=== PATIENT | female | born 1980 | race Caucasian/White ===

== ENCOUNTER 2017-02-16 15:30 | Emergency (ER) | payer MEDICAID ==
[~2017-02-16] VITALS: Ht 157.5 cm; Wt 78.0 kg
[~2017-02-16 15:30] MED LIST: AMO500 PO; BACTDS PO; ERYT1OIN6 RIGHT EYE; IBUP-1542 PO; IBUP-727 PO
[2017-02-16 15:32] VITALS: Ht 157.5 cm; Wt 78.0 kg
[2017-02-16] MEDS ORDERED: ONDANSETRON 4 MG INJ IV STA (16:02)
[2017-02-16] MEDS ORDERED: HYDROmorphONE 1 MG/ML SYG IV STA (16:02)
[2017-02-16] MEDS ORDERED: SOD CHLORIDE 0.9% 1,000 ML IV STA (16:02)
--- NOTE | 2017-02-16 16:08 | ERA ---
ER Documentation Chief Complaint Date/Time DATE: 02/16/17 TIME: 16:07 Chief Complaint AP X 3 DAYS HPI This is a 37-year-old female who complains of bilateral lower quadrant/pelvic pain. She has no vaginal discharge no dysuria no hematuria. Patient says the pain is very sharp and worse with walking and movement. No vomiting no diarrhea no. The patient says she is going to start her period any day now says she has not had symptoms like this before. No radiation of pain no worsening with food or back pain ROS All systems reviewed and are negative except as per history of present illness. Medications Home Meds Active Scripts Ibuprofen* (Motrin*) 600 Mg Tab, 600 MG PO Q6H Y for PAIN AND OR ELEVATED TEMP, #30 TAB Prov:LOUANN MIGUEL [employer] 02/25/16 Amoxicillin* (Amoxicillin*) 500 Mg Cap, 500 MG PO TID for 10 Days, CAP Prov:LOUANN MIGUEL NP 02/25/16 Erythromycin (Erythromycin Opth) 3.5 Gm Oint..gm., 1 APPLIC RIGHT EYE TID for 7 Days, TUB Prov:DELMAR HERNANDEZ 03/11/15 Sulfamethoxazole-Trimethoprim* (Bactrim* DS) 800-160 Mg Tab, 1 TAB PO BID for 5 Days, TAB Prov:NICK FAJARDO PA-C 02/04/15 Reported Medications Ibuprofen (Motrin) 600 Mg Tablet, PO PRN 05/24/13 Allergies Allergies: Coded Allergies: No Known Allergy (Unverified , 05/24/13) PMhx/Soc History of Surgery: Yes (C/S X 2, RT EAR surgery) Anesthesia Reaction: No Hx Neurological Disorder: No Hx Respiratory Disorders: No Hx Cardiac Disorders: No Hx Psychiatric Problems: No Hx Miscellaneous Medical Probl: No (ovarian cysts) Hx Alcohol Use: No Hx Substance Use: No Hx Tobacco Use: No Smoking Status: Never smoker FmHx Family History: No coronary disease Physical Exam Vitals Vital Signs Date Time Temp Pulse Resp B/P Pulse Ox O2 Delivery O2 Flow Rate FiO2 02/16/17 15:32 99.0 69 18 127/70 99 Physical Exam Const: Well-developed, well-nourished Head: Atraumatic, normocephalic Eyes: Normal Conjunctiva, PERRLA, EOMI, normal sclera, no nystagmus ENT: Normal External Ears, Nose and Mouth, moist mucus membranes. Neck: Full range of motion. No meningismus, no lymphadenopathy. Resp: Clear to auscultation bilaterally, no wheezing, rhonchi, rales Cardio: Regular rate and rhythm, no murmurs, S1 S2 present Abd: Soft, diffuse moderate tenderness to the bilateral lower quadrant and bilateral pelvic regions, non distended. Normal bowel sounds, no rebound mild guarding, no pulsitile abdominal masses or bruits Skin: No petechiae or rashes, no ecchymosis , no maculopapular rash Back: No midline or flank tenderness Ext: No cyanosis, or edema, FROM x 4, normal inspection, neurovascularly intact x 4 Neur: Awake and alert, STR 5/5 x 4, sensation intact x 4, no focal findings, cerebellum intact Psych: Normal Mood and Affect Result Diagram: 02/16/17 1625 02/16/17 1625 Results 24 hrs Laboratory Tests Test 02/16/17 16:25 White Blood Count 10.610^3/ul Red Blood Count 4.6810^6/ul Hemoglobin 13.5g/dl Hematocrit 39.3% Mean Corpuscular Volume 84.0fl Mean Corpuscular Hemoglobin 28.8pg Mean Corpuscular Hemoglobin Concent 34.4g/dl Red Cell Distribution Width 13.2% Platelet Count 22417^3/UL Mean Platelet Volume 10.5fl Neutrophils % 64.2% Lymphocytes % 28.2% Monocytes % 5.3% Eosinophils % 1.5% Basophils % 0.4% Nucleated Red Blood Cells % 0.0/100WBC Neutrophils # 6.810^3/ul Lymphocytes # 3.010^3/ul Monocytes # 0.610^3/ul Eosinophils # 0.210^3/ul Basophils # 0.010^3/ul Nucleated Red Blood Cells # 0.010^3/ul Urine Color YELLOW Urine Clarity CLEAR Urine pH 5.0 Urine Specific [place] 1.016 Urine Ketones NEGATIVEmg/dL Urine Nitrite NEGATIVEmg/dL Urine Bilirubin NEGATIVEmg/dL Urine Urobilinogen NEGATIVEmg/dL Urine Leukocyte Esterase NEGATIVELeu/ul Urine Hemoglobin NEGATIVEmg/dL Urine Glucose NEGATIVEmg/dL Urine Total Protein NEGATIVEmg/dl Sodium Level 145mmol/L Potassium Level 2.7mmol/L Chloride Level 105mmol/L Carbon Dioxide Level 21mmol/L Anion Gap 22 Blood Urea Nitrogen 12mg/dl Creatinine 0.63mg/dl Glucose Level 155mg/dl Calcium Level 9.4mg/dl Total Bilirubin 0.2mg/dl Direct Bilirubin 0.00mg/dl Indirect Bilirubin 0.2mg/dl Aspartate Amino Transf (AST/SGOT) 36IU/L Alanine Aminotransferase (ALT/SGPT) 51IU/L Alkaline Phosphatase 102IU/L Total Protein 7.7g/dl Albumin 4.4g/dl Globulin 3.30g/dl Albumin/Globulin Ratio 1.33 Current Medications Medications (Trade) Dose Ordered Sig/Natalie Route PRN Reason Start Time Stop Time Status Last Admin Dose Admin Sodium Chloride (NS) 1,000 ml @ 1,000 mls/hr Q1H STAT IV 02/16/17 16:02 02/16/17 17:01 DC 02/16/17 16:27 Hydromorphone HCl (Dilaudid) 1 mg ONCE STAT IV 02/16/17 16:02 02/16/17 16:04 DC 02/16/17 16:28 Ondansetron HCl (Zofran Inj) 4 mg ONCE STAT IV 02/16/17 16:02 02/16/17 16:04 DC 02/16/17 16:28 Potassium Chloride 40 meq 40 meq ONCE STAT PO 02/16/17 18:23 02/16/17 18:29 DC Potassium Chloride/Sodium Chloride (1/2 NS + KCl 20 Meq) 1,000 ml @ 500 mls/hr Q2H IV 02/16/17 18:30 Procedures/MDM PROCEDURE: CT ABDOMEN AND PELVIS WITHOUT CONTRAST: CLINICAL INDICATION: 37 years of age, female , bilateral lower abdominal pain. COMPARISON: Report of the previous CT December 17, 2011 TECHNIQUE: CT of the abdomen, and pelvis was performed without intravenous contrast. Oral contrast was not administered prior to the examination. Coronal and sagittal reformatted images were obtained from the axial source images. Images were reviewed on a high-resolution PACS workstation. Dose information: Based on a 32 cm phantom, the estimated radiation dose (CTDI vol mGy) for each series in this exam is 8.9 . The estimated cumulative dose ( DLP mGy-cm) is 534 . FINDINGS: In the absence of intravenous contrast, the study constitutes a limited assessment of the solid organs and vessels. LUNG BASES: Normal. ABDOMEN/PELVIS: Liver: Focal fatty infiltration alongside falciform ligament. Otherwise normal. Gallbladder: Normal. Bile ducts: No intrahepatic or extrahepatic biliary duct dilatation. Spleen: Normal. Pancreas: Normal. Adrenal glands: Normal. Kidneys and ureters: Normal. Negative for urinary calculi or hydronephrosis. Aorta and IVC: Normal noncontrast appearance. Lymph nodes: Normal. Gastrointestinal tract: Stomach is moderately distended from recent meal. Bowel loops are decompressed. Appendix: Normal Bladder: Normal. Pelvic Organs: Uterus and ovaries are unremarkable. Peritoneal cavity: No free fluid or free intraperitoneal air. Abdominal wall: Normal. BONES: Musculoskeletal: No suspicious bone lesions. IMPRESSION: Negative for urinary calculi or hydronephrosis. Cause for abdominal pain is not evident. RPTAT: HCTS Physician Diana Date Time Electronically viewed and signed by Physician Diana on 02/16/2017 18: 04 CS/ CC: CALI HARDY DO The patient has a low potassium we will replace intravenously and orally here. The patient has no evidence of any intra-abdominal pathology. No elevated white blood count. Patient states she is about to start her cycle may be this is some premenstrual cramping this beginning. Her pain is mostly in the pelvic region. She has no vaginal discharge or evidence of PID or tubo-ovarian abscess. We will treat with pain medication and nausea medication strict warning signs and observation. We will provide her with more potassium. Departure Diagnosis: Primary Impression: Abdominal pain Qualified Code: R10.30 - Lower abdominal pain Additional Impression: Hypokalemia Condition: Stable CLAI HARDY DO Feb 16, 2017 16:08
[2017-02-16 16:37] LABS: BASOPHILS % 0.4 % (0.0-2.0); EOSINOPHILS # 0.2 10^3/ul (0.0-0.5); EOSINOPHILS % 1.5 % (0.0-7.0); HEMATOCRIT 39.3 % (37.0-47.0); HEMOGLOBIN 13.5 g/dl (12.0-16.0); LYMPHOCYTES % 28.2 % (15.0-51.0); MEAN CORPUSCULAR HEMOGLOBIN 28.8 pg (29.0-33.0); MEAN CORPUSCULAR HGB CONC 34.4 g/dl (32.0-37.0); MEAN PLATELET VOLUME 10.5 fl (7.4-10.4); MONOCYTE # 0.6 10^3/ul (0.3-0.9); MONOCYTES % 5.3 % (0.0-11.0); NEUTROPHIL # 6.8 10^3/ul (1.6-7.5); NEUTROPHILS % 64.2 % (39.0-77.0); PLATELET COUNT 325 10^3/UL (140-415); RED BLOOD COUNT 4.68 10^6/ul (4.20-5.40); RED CELL DISTRIBUTION WIDTH 13.2 % (11.5-14.5); WHITE BLOOD COUNT 10.6 10^3/ul (4.8-10.8)
[2017-02-16 16:57] LABS: ADD UMIC NO; UR ASCORBIC ACID NEGATIVE (NEGATIVE); UR BILIRUBIN (Dip) NEGATIVE (NEGATIVE); UR BLOOD (Dip) NEGATIVE (NEGATIVE); UR CLARITY CLEAR (CLEAR); UR COLOR YELLOW (YELLOW); UR GLUCOSE (Dip) NEGATIVE (NEGATIVE); UR KETONES (Dip) NEGATIVE (NEGATIVE); UR LEUKOCYTE ESTERASE (Dip) NEGATIVE Leu/ul (NEGATIVE); UR NITRITE (Dip) NEGATIVE (NEGATIVE); UR SPECIFIC GRAVITY (Dip) 1.016 (1.003-1.030); UR TOTAL PROTEIN (Dip) NEGATIVE (NEGATIVE); UR UROBILINOGEN (Dip) NEGATIVE (NEGATIVE)
[2017-02-16 16:58] LABS: ALBUMIN 4.4 g/dl (3.3-4.9); ALBUMIN/GLOBULIN RATIO 1.33; BILIRUBIN,INDIRECT 0.2 mg/dl (0-1.1); BILIRUBIN,TOTAL 0.2 mg/dl (0.2-1.3); CALCIUM 9.4 mg/dl (8.4-10.2); CREATININE 0.63 mg/dl (0.44-1.00); TOTAL PROTEIN 7.7 g/dl (6.1-8.1)
[2017-02-16 17:02] LABS: POTASSIUM 2.7 mmol/L (3.5-5.1)
--- NOTE | 2017-02-16 18:04 | RADRPT ---
PROCEDURE: CT ABDOMEN AND PELVIS WITHOUT CONTRAST: CLINICAL INDICATION: 37 years of age, female , bilateral lower abdominal pain. COMPARISON: Report of the previous CT December 17, 2011 TECHNIQUE: CT of the abdomen, and pelvis was performed without intravenous contrast. Oral contrast w as not administered prior to the examination. Coronal and sagittal reformatted images were obtained from the axial source images. Images were revi ewed on a high-resolution PACS workstation. Dose information: Based on a 32 cm phantom, the estimated radiation dose (CTDI vol mGy) for each ser ies in this exam is 8.9 . The estimated cumulative dose (DLP mGy-cm) is 534 . FINDINGS: In the absence of intravenous contrast, the study constitutes a limited assessment of the solid orga ns and vessels. LUNG BASES: Normal. ABDOMEN/PELVIS: Liver: Focal fatty infiltration alongside falciform ligament. Otherwise normal. Gallbladder: Normal. Bile ducts: No intrahepatic or extrahepatic biliary duct dilatation. Spleen: Normal. Pancreas: Normal. Adrenal glands: Normal. Kidneys and ureters: Normal. Negative for urinary calculi or hydronephrosis. Aorta and IVC: Normal noncontrast appearance. Lymph nodes: Normal. Gastrointestinal tract: Stomach is moderately distended from recent meal. Bowel loops are decompress ed. Appendix: Normal Bladder: Normal. Pelvic Organs: Uterus and ovaries are unremarkable. Peritoneal cavity: No free fluid or free intraperitoneal air. Abdominal wall: Normal. BONES: Musculoskeletal: No suspicious bone lesions. IMPRESSION: Negative for urinary calculi or hydronephrosis. Cause for abdominal pain is not evident. RPTAT: HCTS Physician Diana Date Time Electronically viewed and signed by Physician Diana on 02/16/2017 18:04 /
[2017-02-16] MEDS ORDERED: POTASSIUM CHLORIDE (SR) 20 MEQ TAB PO STA (18:23)
[2017-02-16] MEDS ORDERED: ONDA4TAB14 PO (18:37)
[2017-02-16] MEDS ORDERED: HYDR-902 PO (18:37)
[2017-02-16] MEDS ORDERED: POTA10TA37 PO (18:37)
[2017-02-16] MEDS: 1/2 NS + KCL 20 MEQ 1,000 ML IV SCH ×2 (19:12→20:13)
[2017-02-16 21:26] VITALS: BP 130/79; PULSE 71; RESP 20; TEMP 98.5
== END 2017-02-16 18:38 | disposition home or self-care (01) ==
LOC: FTE 15:30
DX: R10.13 Epigastric pain (principal); E87.6 Hypokalemia
CPT/HCPCS: 36415; 74176; 80053; 81003; 85025; 96374; 96375; J1170; J2405; J3480; J7030; Z7502; Z7610